=== PATIENT | male | born 1965 | race African-American/Black ===

== ENCOUNTER 2021-10-21 13:39 | Inpatient (IN) | payer OTHER ==
[2021-10-21] MEDS ORDERED: cloNIDine HCL 0.1 MG TABLET PO ONE (16:46)
[2021-10-21 16:59] VITALS: BMI 28.5
[2021-10-21] MEDS ORDERED: MAGNESIUM HYDROX 2400MG/30ML ORAL SUSPENSION 30 ML CUP PO PRN (17:31)
[2021-10-21] MEDS ORDERED: guaiFENesin 200 MG/10 ML 10 ML UNIT-DOSE CUPS PO PRN (17:31)
[2021-10-21] MEDS ORDERED: MAGNESIUM CITRATE 300 ML BOTTLE PO PRN (17:31)
[2021-10-21] MEDS ORDERED: IBUPROFEN 400 MG TABLET (FP) PO PRN (17:31)
[2021-10-21] MEDS ORDERED: ACETAMINOPHEN 325 MG TABLET (FP) PO PRN (17:31)
[2021-10-21] MEDS ORDERED: P-EPHED 60MG/TRIPROLIDI 2.5MG TABLET PO PRN (17:31)
[2021-10-21] MEDS ORDERED: LOPERAMIDE HCL 2 MG CAPSULE PO PRN ×2 (17:31→17:56)
[2021-10-21] MEDS ORDERED: BISMUTH SUBSALICYLATE 524 MG/30 ML PO PRN (17:56)
[2021-10-21] MEDS ORDERED: chlordiazePOXIDE HCL 25 MG CAPSULE PO PRN (17:56)
[2021-10-21] MEDS ORDERED: ONDANSETRON *ODT* 4 MG TABLET SL PRN (17:56)
[2021-10-21] MEDS ORDERED: DICYCLOMINE HCL 10 MG CAPSULE PO PRN (17:56)
[2021-10-21] MEDS ORDERED: BENZOCAINE/MENTHOL (CHLORASEPTIC ) LOZENGE MM PRN (17:56)
[2021-10-21] MEDS ORDERED: IBUPROFEN 600 MG TABLET (FP) PO PRN (17:56)
[2021-10-21] MEDS: hydrOXYzine PAMOATE 25 MG CAPSULE (FP) PO SCH ×2 (20:53→21:49)
[2021-10-21] MEDS: MELATONIN 5 MG TABLETS PO SCH (21:39)
[2021-10-21] MEDS: ASPIRIN 81 MG CHEWABLE TABLETS PO SCH (21:39)
[2021-10-21] MEDS: THIAMINE HCL 100 MG TABLET (FP) PO SCH (21:39)
[2021-10-21] MEDS: METHOCARBAMOL 500 MG TABLET PO PRN (21:40)
[2021-10-21] MEDS: GABAPENTIN 400 MG CAPSULE PO SCH (21:40)
[2021-10-21] MEDS ORDERED: GABAPENTIN 400 MG CAPSULE PO SCH (22:00)
[2021-10-21] MEDS: chlordiazePOXIDE HCL 25 MG CAPSULE PO SCH (22:05)
[2021-10-22] MEDS: hydrOXYzine PAMOATE 25 MG CAPSULE (FP) PO SCH ×5 (05:36→22:27)
[2021-10-22] MEDS: GABAPENTIN 400 MG CAPSULE PO SCH ×3 (05:36→22:27)
[2021-10-22] MEDS: chlordiazePOXIDE HCL 25 MG CAPSULE PO SCH ×4 (05:37→22:26)
[2021-10-22] MEDS: NICOTINE 7 MG/24 HOURS TOPICAL PATCH TD SCH (10:19)
[2021-10-22] MEDS: PRENATAL VITAMINS W/ FOLIC ACID TABLET (FP) PO SCH (10:20)
[2021-10-22] MEDS: METHOCARBAMOL 500 MG TABLET PO PRN (10:20)
[2021-10-22] MEDS: ASPIRIN 81 MG CHEWABLE TABLETS PO SCH (10:20)
[2021-10-22 13:56] LABS: BLOOD UREA NITROGEN 12.5 mg/dL (7-18); CALCIUM 9.5 mg/dL (8.5-10.1); HEMATOCRIT 39.3 % (35.4-49); HEMOGLOBIN 12.9 GM/dL (11.7-16.9); MCH 28.7 pg (25.7-33.7); MCHC 32.7 g/dl (32.0-35.9); MEAN CELL VOLUME 87.8 fl (80-96); MEAN PLT VOLUME 10.1 fl (7.5-11.1); PLATELET COUNT 336 10^3/uL (134-434); RBC 4.48 M/mm3 (4.00-5.60); RDW 16.2 % (11.9-15.9); WHITE BLOOD COUNT 8.4 K/mm3 (4.0-10.0)
[2021-10-22 14:00] LABS: BILIRUBIN,TOTAL 0.7 mg/dL (0.2-1)
[2021-10-22 14:01] LABS: TOT PROT 6.5 g/dl (6.4-8.2)
[2021-10-22 14:27] LABS: SYPHILIS W/ RPR CONF NON-REACTIVE (NONREACTIVE)
[2021-10-22] MEDS: MAG HYDROX/AL HYDROX/SIMETH 30 ML UNIT-DOSE CUP PO PRN (19:40)
[2021-10-22] MEDS: MELATONIN 5 MG TABLETS PO SCH (22:27)
[2021-10-22] MEDS: PANTOPRAZOLE 20 MG TABLET PO SCH (22:27)
[2021-10-22] MEDS: THIAMINE HCL 100 MG TABLET (FP) PO SCH (22:27)
[2021-10-23] MEDS: chlordiazePOXIDE HCL 25 MG CAPSULE PO SCH ×4 (06:13→23:12)
[2021-10-23] MEDS: hydrOXYzine PAMOATE 25 MG CAPSULE (FP) PO SCH ×5 (06:14→23:13)
[2021-10-23] MEDS: GABAPENTIN 400 MG CAPSULE PO SCH ×3 (06:14→23:12)
[2021-10-23] MEDS: MAG HYDROX/AL HYDROX/SIMETH 30 ML UNIT-DOSE CUP PO PRN (06:36)
[2021-10-23] MEDS: PANTOPRAZOLE 20 MG TABLET PO SCH ×3 (10:18→23:11)
[2021-10-23] MEDS: ASPIRIN 81 MG CHEWABLE TABLETS PO SCH (10:18)
[2021-10-23] MEDS: PRENATAL VITAMINS W/ FOLIC ACID TABLET (FP) PO SCH (10:18)
[2021-10-23] MEDS: NICOTINE 7 MG/24 HOURS TOPICAL PATCH TD SCH (12:03)
[2021-10-23] MEDS: METOPROLOL TARTRATE 25 MG TABLET (FP) PO SCH ×2 (13:44→23:12)
[2021-10-23] MEDS: NIFEdipine E.R 60 MG TABLET PO SCH ×2 (13:44→23:12)
[2021-10-23] MEDS: RIVAROXABAN 20 MG TABLET PO SCH (13:44)
[2021-10-23] MEDS: MELATONIN 5 MG TABLETS PO SCH (23:12)
[2021-10-23] MEDS: THIAMINE HCL 100 MG TABLET (FP) PO SCH (23:13)
[2021-10-24] MEDS ORDERED: chlordiazePOXIDE HCL 10 MG CAPSULE PO PRN
[2021-10-24] MEDS: hydrOXYzine PAMOATE 25 MG CAPSULE (FP) PO SCH ×5 (06:57→22:38)
[2021-10-24] MEDS: chlordiazePOXIDE HCL 10 MG CAPSULE PO SCH ×4 (06:57→22:39)
[2021-10-24] MEDS: GABAPENTIN 400 MG CAPSULE PO SCH ×3 (06:57→22:38)
[2021-10-24] MEDS: METOPROLOL TARTRATE 25 MG TABLET (FP) PO SCH ×2 (10:32→22:38)
[2021-10-24] MEDS: ASPIRIN 81 MG CHEWABLE TABLETS PO SCH (10:32)
[2021-10-24] MEDS: PANTOPRAZOLE 20 MG TABLET PO SCH ×2 (10:32→22:38)
[2021-10-24] MEDS: RIVAROXABAN 20 MG TABLET PO SCH (10:32)
[2021-10-24] MEDS: NIFEdipine E.R 60 MG TABLET PO SCH ×2 (10:33→23:20)
[2021-10-24] MEDS: PRENATAL VITAMINS W/ FOLIC ACID TABLET (FP) PO SCH (10:33)
[2021-10-24] MEDS: NICOTINE 7 MG/24 HOURS TOPICAL PATCH TD SCH (10:33)
[2021-10-24] MEDS: NICOTINE 10 MG CARTRIDGE (INHALER) IH PRN (19:59)
[2021-10-24] MEDS: THIAMINE HCL 100 MG TABLET (FP) PO SCH (22:38)
[2021-10-24] MEDS: MELATONIN 5 MG TABLETS PO SCH (22:39)
[2021-10-25] MEDS: GABAPENTIN 400 MG CAPSULE PO SCH ×3 (06:25→22:55)
[2021-10-25] MEDS: chlordiazePOXIDE HCL 10 MG CAPSULE PO SCH ×2 (06:25→18:28)
[2021-10-25] MEDS: hydrOXYzine PAMOATE 25 MG CAPSULE (FP) PO SCH ×5 (06:26→22:56)
[2021-10-25] MEDS: NIFEdipine E.R 60 MG TABLET PO SCH ×2 (10:48→22:56)
[2021-10-25] MEDS: METOPROLOL TARTRATE 25 MG TABLET (FP) PO SCH ×2 (10:48→22:55)
[2021-10-25] MEDS: RIVAROXABAN 20 MG TABLET PO SCH (10:48)
[2021-10-25] MEDS: ASPIRIN 81 MG CHEWABLE TABLETS PO SCH (10:49)
[2021-10-25] MEDS: PRENATAL VITAMINS W/ FOLIC ACID TABLET (FP) PO SCH (10:49)
[2021-10-25] MEDS: PANTOPRAZOLE 20 MG TABLET PO SCH ×2 (10:49→22:55)
[2021-10-25] MEDS: NICOTINE 7 MG/24 HOURS TOPICAL PATCH TD SCH (10:49)
[2021-10-25] MEDS: THIAMINE HCL 100 MG TABLET (FP) PO SCH (22:56)
[2021-10-25] MEDS: MELATONIN 5 MG TABLETS PO SCH (22:56)
[2021-10-26] MEDS ORDERED: chlordiazePOXIDE HCL 10 MG CAPSULE PO ONE (05:00)
[2021-10-26] MEDS: hydrOXYzine PAMOATE 25 MG CAPSULE (FP) PO SCH ×5 (06:36→21:48)
[2021-10-26] MEDS: GABAPENTIN 400 MG CAPSULE PO SCH ×3 (06:36→21:48)
[2021-10-26] MEDS: PANTOPRAZOLE 20 MG TABLET PO SCH ×2 (11:02→21:49)
[2021-10-26] MEDS: ASPIRIN 81 MG CHEWABLE TABLETS PO SCH (11:02)
[2021-10-26] MEDS: PRENATAL VITAMINS W/ FOLIC ACID TABLET (FP) PO SCH (11:02)
[2021-10-26] MEDS: NIFEdipine E.R 60 MG TABLET PO SCH ×2 (11:02→23:03)
[2021-10-26] MEDS: METHOCARBAMOL 500 MG TABLET PO PRN (11:10)
[2021-10-26] MEDS: NICOTINE 7 MG/24 HOURS TOPICAL PATCH TD SCH (11:17)
[2021-10-26] MEDS: METOPROLOL TARTRATE 25 MG TABLET (FP) PO SCH ×2 (11:17→21:50)
[2021-10-26] MEDS: RIVAROXABAN 20 MG TABLET PO SCH (11:18)
[2021-10-26] MEDS: VITAMINS A AND D TOPICAL OINTMENT 60 GM TUBE TP SCH (18:12)
[2021-10-26] MEDS: MELATONIN 5 MG TABLETS PO SCH (21:49)
[2021-10-26] MEDS: THIAMINE HCL 100 MG TABLET (FP) PO SCH (21:49)
[2021-10-27] MEDS: VITAMINS A AND D TOPICAL OINTMENT 60 GM TUBE TP SCH ×4 (02:33→18:53)
[2021-10-27] MEDS: hydrOXYzine PAMOATE 25 MG CAPSULE (FP) PO SCH ×5 (05:52→21:36)
[2021-10-27] MEDS: GABAPENTIN 400 MG CAPSULE PO SCH ×3 (05:52→21:36)
[2021-10-27] MEDS: NIFEdipine E.R 60 MG TABLET PO SCH ×2 (11:06→21:45)
[2021-10-27] MEDS: PRENATAL VITAMINS W/ FOLIC ACID TABLET (FP) PO SCH (11:07)
[2021-10-27] MEDS: METOPROLOL TARTRATE 25 MG TABLET (FP) PO SCH ×2 (11:07→21:36)
[2021-10-27] MEDS: ASPIRIN 81 MG CHEWABLE TABLETS PO SCH (11:07)
[2021-10-27] MEDS: NICOTINE 7 MG/24 HOURS TOPICAL PATCH TD SCH (11:07)
[2021-10-27] MEDS: PANTOPRAZOLE 20 MG TABLET PO SCH ×2 (11:12→21:36)
[2021-10-27] MEDS: RIVAROXABAN 20 MG TABLET PO SCH (11:18)
[2021-10-27] MEDS: MELATONIN 5 MG TABLETS PO SCH (21:36)
[2021-10-27] MEDS: THIAMINE HCL 100 MG TABLET (FP) PO SCH (21:36)
[2021-10-28] MEDS: hydrOXYzine PAMOATE 25 MG CAPSULE (FP) PO SCH ×5 (06:30→23:17)
[2021-10-28] MEDS: GABAPENTIN 400 MG CAPSULE PO SCH ×3 (06:30→23:16)
[2021-10-28] MEDS: VITAMINS A AND D TOPICAL OINTMENT 60 GM TUBE TP SCH ×4 (06:30→23:15)
[2021-10-28] MEDS: PRENATAL VITAMINS W/ FOLIC ACID TABLET (FP) PO SCH (10:34)
[2021-10-28] MEDS: NIFEdipine E.R 60 MG TABLET PO SCH ×2 (10:35→23:16)
[2021-10-28] MEDS: METOPROLOL TARTRATE 25 MG TABLET (FP) PO SCH ×2 (10:35→23:17)
[2021-10-28] MEDS: ASPIRIN 81 MG CHEWABLE TABLETS PO SCH (10:35)
[2021-10-28] MEDS: RIVAROXABAN 20 MG TABLET PO SCH (10:35)
[2021-10-28] MEDS: PANTOPRAZOLE 20 MG TABLET PO SCH ×2 (10:35→23:16)
[2021-10-28] MEDS: NICOTINE 7 MG/24 HOURS TOPICAL PATCH TD SCH (10:36)
[2021-10-28] MEDS: MELATONIN 5 MG TABLETS PO SCH (23:16)
[2021-10-28] MEDS: THIAMINE HCL 100 MG TABLET (FP) PO SCH (23:17)
[2021-10-29] MEDS: hydrOXYzine PAMOATE 25 MG CAPSULE (FP) PO SCH ×5 (06:27→22:00)
[2021-10-29] MEDS: GABAPENTIN 400 MG CAPSULE PO SCH ×3 (06:27→21:48)
[2021-10-29] MEDS: VITAMINS A AND D TOPICAL OINTMENT 60 GM TUBE TP SCH ×4 (06:28→22:00)
[2021-10-29] MEDS: RIVAROXABAN 20 MG TABLET PO SCH (09:57)
[2021-10-29] MEDS: NIFEdipine E.R 60 MG TABLET PO SCH ×2 (09:57→21:48)
[2021-10-29] MEDS: PRENATAL VITAMINS W/ FOLIC ACID TABLET (FP) PO SCH (09:57)
[2021-10-29] MEDS: METOPROLOL TARTRATE 25 MG TABLET (FP) PO SCH ×2 (09:57→21:48)
[2021-10-29] MEDS: PANTOPRAZOLE 20 MG TABLET PO SCH ×2 (09:57→21:48)
[2021-10-29] MEDS: ASPIRIN 81 MG CHEWABLE TABLETS PO SCH (09:57)
[2021-10-29] MEDS: NICOTINE 7 MG/24 HOURS TOPICAL PATCH TD SCH (09:58)
[2021-10-29] MEDS: MELATONIN 5 MG TABLETS PO SCH (21:48)
[2021-10-29] MEDS: THIAMINE HCL 100 MG TABLET (FP) PO SCH (21:48)
[2021-10-29] MEDS: NICOTINE 10 MG CARTRIDGE (INHALER) IH PRN (22:58)
[2021-10-30] MEDS: hydrOXYzine PAMOATE 25 MG CAPSULE (FP) PO SCH ×5 (05:36→22:52)
[2021-10-30] MEDS: GABAPENTIN 400 MG CAPSULE PO SCH ×3 (05:36→22:52)
[2021-10-30] MEDS: VITAMINS A AND D TOPICAL OINTMENT 60 GM TUBE TP SCH ×3 (05:37→18:51)
[2021-10-30] MEDS: RIVAROXABAN 20 MG TABLET PO SCH (09:48)
[2021-10-30] MEDS: NICOTINE 7 MG/24 HOURS TOPICAL PATCH TD SCH (09:48)
[2021-10-30] MEDS: ASPIRIN 81 MG CHEWABLE TABLETS PO SCH (09:48)
[2021-10-30] MEDS: NIFEdipine E.R 60 MG TABLET PO SCH ×2 (09:48→22:52)
[2021-10-30] MEDS: PRENATAL VITAMINS W/ FOLIC ACID TABLET (FP) PO SCH (09:48)
[2021-10-30] MEDS: PANTOPRAZOLE 20 MG TABLET PO SCH ×2 (09:48→22:52)
[2021-10-30] MEDS: METOPROLOL TARTRATE 25 MG TABLET (FP) PO SCH ×2 (09:48→22:51)
[2021-10-30] MEDS ORDERED: HYDROCORTISONE 0.5% TOPICAL CREAM 30 GM TUBE TP ONE (17:04)
[2021-10-30] MEDS: NEOMYCIN/POLYMYXIN/BACITRACIN (TRIPLE ANTIBIOTIC) 28 GM OINTMENT TP SCH (22:51)
[2021-10-30] MEDS: THIAMINE HCL 100 MG TABLET (FP) PO SCH (22:51)
[2021-10-30] MEDS: MELATONIN 5 MG TABLETS PO SCH (22:52)
[2021-10-31] MEDS: VITAMINS A AND D TOPICAL OINTMENT 60 GM TUBE TP SCH ×4 (01:10→18:07)
[2021-10-31] MEDS: GABAPENTIN 400 MG CAPSULE PO SCH ×3 (06:38→22:26)
[2021-10-31] MEDS: hydrOXYzine PAMOATE 25 MG CAPSULE (FP) PO SCH ×5 (06:38→22:24)
[2021-10-31 06:56] VITALS: RESP 18
[2021-10-31] MEDS: ASPIRIN 81 MG CHEWABLE TABLETS PO SCH (10:40)
[2021-10-31] MEDS: PANTOPRAZOLE 20 MG TABLET PO SCH ×2 (10:40→22:24)
[2021-10-31] MEDS: NICOTINE 7 MG/24 HOURS TOPICAL PATCH TD SCH (10:41)
[2021-10-31] MEDS: METOPROLOL TARTRATE 25 MG TABLET (FP) PO SCH ×2 (10:41→22:26)
[2021-10-31] MEDS: PRENATAL VITAMINS W/ FOLIC ACID TABLET (FP) PO SCH (10:41)
[2021-10-31] MEDS: NIFEdipine E.R 60 MG TABLET PO SCH ×2 (10:42→22:25)
[2021-10-31] MEDS: RIVAROXABAN 20 MG TABLET PO SCH (10:44)
[2021-10-31] MEDS: NEOMYCIN/POLYMYXIN/BACITRACIN (TRIPLE ANTIBIOTIC) 28 GM OINTMENT TP SCH (10:44)
[2021-10-31 11:02] LABS: EPI CELLS 1 /uL (0-25.1); HYALINE CASTS 0 /uL (0-3.1); PH,URINE 7.5 (5.0-8.0); URINE APPEARANCE CLEAR; URINE BACTERIA 6 /uL (0-1359); URINE BILIRUBIN NEGATIVE (NEGATIVE); URINE COLOR YELLOW; URINE GLUCOSE (UA) NEGATIVE (NEGATIVE); URINE KETONE NEGATIVE (NEGATIVE); URINE LEUK ESTERASE NEGATIVE (NEGATIVE); URINE NITRITE NEGATIVE (NEGATIVE); URINE PROTEIN 1+ (NEGATIVE); URINE RBC 18 /uL (0-23.9); URINE UROBILINOGEN 0.2 mg/dL (0.2-1.0); URINE WBC 1 /uL (0-25.8)
[2021-10-31] MEDS: MELATONIN 5 MG TABLETS PO SCH (22:24)
[2021-10-31] MEDS: THIAMINE HCL 100 MG TABLET (FP) PO SCH (22:24)
[2021-11-01] MEDS: GABAPENTIN 400 MG CAPSULE PO SCH (06:27)
[2021-11-01] MEDS: hydrOXYzine PAMOATE 25 MG CAPSULE (FP) PO SCH ×2 (06:28→10:12)
[2021-11-01] MEDS: VITAMINS A AND D TOPICAL OINTMENT 60 GM TUBE TP SCH ×2 (07:44→07:45)
[2021-11-01 09:35] VITALS: BP 157/74; PULSE 64; TEMP 97.8
[2021-11-01] MEDS: NICOTINE 7 MG/24 HOURS TOPICAL PATCH TD SCH (10:12)
[2021-11-01] MEDS: PRENATAL VITAMINS W/ FOLIC ACID TABLET (FP) PO SCH (10:12)
[2021-11-01] MEDS: NEOMYCIN/POLYMYXIN/BACITRACIN (TRIPLE ANTIBIOTIC) 28 GM OINTMENT TP SCH (10:12)
[2021-11-01] MEDS: ASPIRIN 81 MG CHEWABLE TABLETS PO SCH (10:12)
[2021-11-01] MEDS: PANTOPRAZOLE 20 MG TABLET PO SCH (10:12)
[2021-11-01] MEDS: METOPROLOL TARTRATE 25 MG TABLET (FP) PO SCH (10:13)
[2021-11-01] MEDS: NIFEdipine E.R 60 MG TABLET PO SCH (10:13)
[2021-11-01] MEDS: RIVAROXABAN 20 MG TABLET PO SCH (10:14)
== END 2021-11-01 10:59 | disposition other institution (70) | DRG 775 ==
LOC: YASAS 13:39 → Y3N 18:46
PROVIDERS: ADMIT Allergy & Immunology; ATTEND Surgery
PROC: HZ2ZZZZ Detoxification Services for Substance Abuse Treatment (ICD-10-PCS; principal; 2021-10-21)
DX: F10.230 Alcohol dependence with withdrawal, uncomplicated (principal); F17.210 Nicotine dependence, cigarettes, uncomplicated; E78.5 Hyperlipidemia, unspecified; I10 Essential (primary) hypertension; I73.9 Peripheral vascular disease, unspecified; Z89.512 Acquired absence of left leg below knee; Z89.611 Acquired absence of right leg above knee; Z99.89 Dependence on other enabling machines and devices; Z86.73 Personal history of transient ischemic attack (TIA), and cerebral infarction without residual deficits; Z28.310 Unvaccinated for COVID-19; Z28.9 Immunization not carried out for unspecified reason; Z91.018 Allergy to other foods
CPT/HCPCS: 36415; 80053; 81003; 85027; 86780; 86803; 87522; C9803-CS; U0003; U0005

== ENCOUNTER 2021-11-01 10:50 | Inpatient (IN) | payer OTHER ==
[2021-11-01] MEDS ORDERED: MAGNESIUM CITRATE 300 ML BOTTLE PO PRN (15:26)
[2021-11-01] MEDS ORDERED: IBUPROFEN 400 MG TABLET (FP) PO PRN (15:26)
[2021-11-01] MEDS ORDERED: P-EPHED 60MG/TRIPROLIDI 2.5MG TABLET PO PRN (15:26)
[2021-11-01] MEDS ORDERED: LOPERAMIDE HCL 2 MG CAPSULE PO PRN (15:26)
[2021-11-01] MEDS ORDERED: MAG HYDROX/AL HYDROX/SIMETH 30 ML UNIT-DOSE CUP PO PRN (15:26)
[2021-11-01] MEDS ORDERED: MAGNESIUM HYDROX 2400MG/30ML ORAL SUSPENSION 30 ML CUP PO PRN (15:26)
[2021-11-01] MEDS ORDERED: NICOTINE 10 MG CARTRIDGE (INHALER) IH PRN (15:26)
[2021-11-01] MEDS ORDERED: BENZOCAINE/MENTHOL (CHLORASEPTIC ) LOZENGE MM PRN (15:26)
[2021-11-01] MEDS ORDERED: ACETAMINOPHEN 325 MG TABLET (FP) PO PRN (15:26)
[2021-11-01] MEDS ORDERED: guaiFENesin 200 MG/10 ML 10 ML UNIT-DOSE CUPS PO PRN (15:26)
[2021-11-01] MEDS: NICOTINE 7 MG/24 HOURS TOPICAL PATCH TD SCH (19:08)
[2021-11-01] MEDS: hydrOXYzine PAMOATE 25 MG CAPSULE (FP) PO SCH ×2 (19:09→21:16)
[2021-11-01] MEDS: PRENATAL VITAMINS W/ FOLIC ACID TABLET (FP) PO SCH (19:10)
[2021-11-01] MEDS: THIAMINE HCL 100 MG TABLET (FP) PO SCH (21:15)
[2021-11-01] MEDS: ROSUVASTATIN CA 10 MG TABLET PO SCH (21:16)
[2021-11-01] MEDS: GABAPENTIN 400 MG CAPSULE PO SCH (21:16)
[2021-11-01] MEDS: PANTOPRAZOLE 20 MG TABLET PO SCH (21:16)
[2021-11-01] MEDS: METOPROLOL TARTRATE 25 MG TABLET (FP) PO SCH (21:16)
[2021-11-01] MEDS: NIFEdipine E.R 60 MG TABLET PO SCH (21:18)
[2021-11-01] MEDS ORDERED: MELATONIN 5 MG TABLETS PO SCH (22:00)
[2021-11-02] MEDS: GABAPENTIN 400 MG CAPSULE PO SCH ×3 (07:55→21:20)
[2021-11-02] MEDS: hydrOXYzine PAMOATE 25 MG CAPSULE (FP) PO SCH ×5 (07:56→21:19)
[2021-11-02] MEDS: PRENATAL VITAMINS W/ FOLIC ACID TABLET (FP) PO SCH (10:02)
[2021-11-02] MEDS: METOPROLOL TARTRATE 25 MG TABLET (FP) PO SCH ×2 (10:02→21:21)
[2021-11-02] MEDS: NIFEdipine E.R 60 MG TABLET PO SCH ×2 (10:02→21:23)
[2021-11-02] MEDS: CLOPIDOGREL BISULFATE 75 MG TABLET (FP) PO SCH (10:02)
[2021-11-02] MEDS: NICOTINE 7 MG/24 HOURS TOPICAL PATCH TD SCH (10:02)
[2021-11-02] MEDS: PANTOPRAZOLE 20 MG TABLET PO SCH ×2 (10:02→21:20)
[2021-11-02] MEDS ORDERED: DULoxetine HCL 60 MG CAPSULE.DR PO SCH (15:30)
[2021-11-02] MEDS: DULoxetine HCL 30 MG CAPSULE.DR PO SCH (15:31)
[2021-11-02] MEDS: THIAMINE HCL 100 MG TABLET (FP) PO SCH (21:19)
[2021-11-02] MEDS: ROSUVASTATIN CA 10 MG TABLET PO SCH (21:23)
[2021-11-02] MEDS ORDERED: SUVOREXANT 10 MG TABLET PO PRN (22:00)
[2021-11-03] MEDS: GABAPENTIN 400 MG CAPSULE PO SCH ×3 (07:26→21:40)
[2021-11-03] MEDS: hydrOXYzine PAMOATE 25 MG CAPSULE (FP) PO SCH ×5 (07:26→21:40)
[2021-11-03] MEDS: CLOPIDOGREL BISULFATE 75 MG TABLET (FP) PO SCH (09:42)
[2021-11-03] MEDS: DULoxetine HCL 30 MG CAPSULE.DR PO SCH (09:43)
[2021-11-03] MEDS: PANTOPRAZOLE 20 MG TABLET PO SCH ×2 (09:43→21:40)
[2021-11-03] MEDS: METOPROLOL TARTRATE 25 MG TABLET (FP) PO SCH ×2 (09:43→21:40)
[2021-11-03] MEDS: NIFEdipine E.R 60 MG TABLET PO SCH ×2 (09:44→21:41)
[2021-11-03] MEDS: PRENATAL VITAMINS W/ FOLIC ACID TABLET (FP) PO SCH (09:44)
[2021-11-03] MEDS: NICOTINE 7 MG/24 HOURS TOPICAL PATCH TD SCH (09:44)
[2021-11-03] MEDS: THIAMINE HCL 100 MG TABLET (FP) PO SCH (21:39)
[2021-11-03] MEDS: ROSUVASTATIN CA 10 MG TABLET PO SCH (21:41)
[2021-11-04] MEDS: GABAPENTIN 400 MG CAPSULE PO SCH ×3 (06:48→22:50)
[2021-11-04] MEDS: hydrOXYzine PAMOATE 25 MG CAPSULE (FP) PO SCH ×5 (06:48→22:50)
[2021-11-04] MEDS: METOPROLOL TARTRATE 25 MG TABLET (FP) PO SCH ×2 (09:46→22:50)
[2021-11-04] MEDS: DULoxetine HCL 30 MG CAPSULE.DR PO SCH (09:47)
[2021-11-04] MEDS: PANTOPRAZOLE 20 MG TABLET PO SCH ×2 (09:47→22:50)
[2021-11-04] MEDS: PRENATAL VITAMINS W/ FOLIC ACID TABLET (FP) PO SCH (09:47)
[2021-11-04] MEDS: NIFEdipine E.R 60 MG TABLET PO SCH ×2 (09:48→22:50)
[2021-11-04] MEDS: NICOTINE 7 MG/24 HOURS TOPICAL PATCH TD SCH (09:49)
[2021-11-04] MEDS: CLOPIDOGREL BISULFATE 75 MG TABLET (FP) PO SCH (11:05)
[2021-11-04] MEDS ORDERED: RIVAROXABAN 20 MG TABLET PO SCH (18:00)
[2021-11-04] MEDS ORDERED: SUVOREXANT 10 MG TABLET PO PRN (22:00)
[2021-11-04] MEDS: THIAMINE HCL 100 MG TABLET (FP) PO SCH (22:50)
[2021-11-04] MEDS: ROSUVASTATIN CA 10 MG TABLET PO SCH (22:50)
[2021-11-04 23:46] VITALS: RESP 18
[2021-11-05 00:48] VITALS: BP 161/74; PULSE 71; TEMP 98.2
== END 2021-11-05 00:15 | disposition short-term general hospital (02) | DRG 775 ==
LOC: YASAS 10:50 → Y3E 10:52
PROVIDERS: ADMIT Allergy & Immunology; ATTEND Psychiatry & Neurology Pain Medicine
DX: F10.20 Alcohol dependence, uncomplicated (principal); F12.20 Cannabis dependence, uncomplicated; F10.24 Alcohol dependence with alcohol-induced mood disorder; F10.282 Alcohol dependence with alcohol-induced sleep disorder; F10.280 Alcohol dependence with alcohol-induced anxiety disorder; F17.210 Nicotine dependence, cigarettes, uncomplicated; I73.9 Peripheral vascular disease, unspecified; I10 Essential (primary) hypertension; E78.5 Hyperlipidemia, unspecified; K21.9 Gastro-esophageal reflux disease without esophagitis; S59.902A Unspecified injury of left elbow, initial encounter; S19.9XXA Unspecified injury of neck, initial encounter; W18.2XXA Fall in (into) shower or empty bathtub, initial encounter; Y93.E1 Activity, personal bathing and showering; Y92.231 Patient bathroom in hospital as the place of occurrence of the external cause; Z62.810 Personal history of physical and sexual abuse in childhood; Z89.611 Acquired absence of right leg above knee; Z89.512 Acquired absence of left leg below knee; Z99.89 Dependence on other enabling machines and devices; Z91.410 Personal history of adult physical and sexual abuse; Z86.711 Personal history of pulmonary embolism; Z79.01 Long term (current) use of anticoagulants; Z95.828 Presence of other vascular implants and grafts; Z86.73 Personal history of transient ischemic attack (TIA), and cerebral infarction without residual deficits; Z87.11 Personal history of peptic ulcer disease
CPT/HCPCS: 82962

== ENCOUNTER 2021-11-06 16:42 | Inpatient (IN) | payer OTHER ==
[2021-11-06] MEDS ORDERED: MAGNESIUM CITRATE 300 ML BOTTLE PO PRN (17:16)
[2021-11-06] MEDS ORDERED: ACETAMINOPHEN 325 MG TABLET (FP) PO PRN (17:16)
[2021-11-06] MEDS ORDERED: P-EPHED 60MG/TRIPROLIDI 2.5MG TABLET PO PRN (17:16)
[2021-11-06] MEDS ORDERED: MAGNESIUM HYDROX 2400MG/30ML ORAL SUSPENSION 30 ML CUP PO PRN (17:16)
[2021-11-06] MEDS ORDERED: LOPERAMIDE HCL 2 MG CAPSULE PO PRN (17:16)
[2021-11-06] MEDS ORDERED: MAG HYDROX/AL HYDROX/SIMETH 30 ML UNIT-DOSE CUP PO PRN (17:16)
[2021-11-06] MEDS ORDERED: BENZOCAINE/MENTHOL (CHLORASEPTIC ) LOZENGE MM PRN (17:16)
[2021-11-06] MEDS ORDERED: guaiFENesin 200 MG/10 ML 10 ML UNIT-DOSE CUPS PO PRN (17:16)
[2021-11-06 17:17] VITALS: BMI 33.2
[2021-11-06] MEDS: RIVAROXABAN 20 MG TABLET PO SCH (19:30)
[2021-11-06] MEDS: THIAMINE HCL 100 MG TABLET (FP) PO SCH (21:06)
[2021-11-06] MEDS: NIFEdipine E.R 60 MG TABLET PO SCH (21:06)
[2021-11-06] MEDS: MELATONIN 5 MG TABLETS PO PRN (21:06)
[2021-11-06] MEDS: ROSUVASTATIN CA 10 MG TABLET PO SCH (21:06)
[2021-11-06] MEDS: METOPROLOL TARTRATE 25 MG TABLET (FP) PO SCH (21:08)
[2021-11-06] MEDS: GABAPENTIN 400 MG CAPSULE PO SCH (21:08)
[2021-11-07] MEDS: GABAPENTIN 400 MG CAPSULE PO SCH ×3 (06:36→21:11)
[2021-11-07] MEDS: DULoxetine HCL 30 MG CAPSULE.DR PO SCH (09:42)
[2021-11-07] MEDS: PRENATAL VITAMINS W/ FOLIC ACID TABLET (FP) PO SCH (09:43)
[2021-11-07] MEDS: METOPROLOL TARTRATE 25 MG TABLET (FP) PO SCH ×2 (09:43→21:11)
[2021-11-07] MEDS: CLOPIDOGREL BISULFATE 75 MG TABLET (FP) PO SCH (09:43)
[2021-11-07] MEDS: NIFEdipine E.R 60 MG TABLET PO SCH ×2 (09:43→21:12)
[2021-11-07] MEDS: FAMOTIDINE 20 MG TABLET PO SCH (09:43)
[2021-11-07] MEDS: LIDOCAINE 5% TOPICAL PATCH TP PRN (12:55)
[2021-11-07] MEDS: RIVAROXABAN 20 MG TABLET PO SCH (17:14)
[2021-11-07] MEDS: THIAMINE HCL 100 MG TABLET (FP) PO SCH (21:11)
[2021-11-07] MEDS: ROSUVASTATIN CA 10 MG TABLET PO SCH (21:11)
[2021-11-07] MEDS: LIDOCAINE PATCH REMOVAL MC SCH (21:11)
[2021-11-07] MEDS: MELATONIN 5 MG TABLETS PO PRN (21:12)
[2021-11-08] MEDS: GABAPENTIN 400 MG CAPSULE PO SCH ×3 (07:07→21:34)
[2021-11-08] MEDS: CLOPIDOGREL BISULFATE 75 MG TABLET (FP) PO SCH (10:25)
[2021-11-08] MEDS: DULoxetine HCL 30 MG CAPSULE.DR PO SCH (10:26)
[2021-11-08] MEDS: FAMOTIDINE 20 MG TABLET PO SCH (10:26)
[2021-11-08] MEDS: NIFEdipine E.R 60 MG TABLET PO SCH ×2 (10:26→21:36)
[2021-11-08] MEDS: PRENATAL VITAMINS W/ FOLIC ACID TABLET (FP) PO SCH (10:26)
[2021-11-08] MEDS: METOPROLOL TARTRATE 25 MG TABLET (FP) PO SCH ×2 (12:30→21:34)
[2021-11-08] MEDS: RIVAROXABAN 20 MG TABLET PO SCH (18:05)
[2021-11-08] MEDS: ROSUVASTATIN CA 10 MG TABLET PO SCH (21:34)
[2021-11-08] MEDS: THIAMINE HCL 100 MG TABLET (FP) PO SCH (21:34)
[2021-11-08] MEDS: LIDOCAINE PATCH REMOVAL MC SCH (21:34)
[2021-11-08] MEDS: MELATONIN 5 MG TABLETS PO PRN (21:36)
[2021-11-09] MEDS: GABAPENTIN 400 MG CAPSULE PO SCH ×3 (08:00→21:20)
[2021-11-09] MEDS: METOPROLOL TARTRATE 25 MG TABLET (FP) PO SCH ×2 (10:20→21:20)
[2021-11-09] MEDS: DULoxetine HCL 30 MG CAPSULE.DR PO SCH (10:20)
[2021-11-09] MEDS: CLOPIDOGREL BISULFATE 75 MG TABLET (FP) PO SCH (10:20)
[2021-11-09] MEDS: FAMOTIDINE 20 MG TABLET PO SCH (10:20)
[2021-11-09] MEDS: PRENATAL VITAMINS W/ FOLIC ACID TABLET (FP) PO SCH (10:21)
[2021-11-09] MEDS: NIFEdipine E.R 60 MG TABLET PO SCH ×2 (10:21→21:20)
[2021-11-09] MEDS: RIVAROXABAN 20 MG TABLET PO SCH (18:01)
[2021-11-09] MEDS: ROSUVASTATIN CA 10 MG TABLET PO SCH (21:20)
[2021-11-09] MEDS: hydrOXYzine PAMOATE 25 MG CAPSULE (FP) PO PRN (21:20)
[2021-11-09] MEDS: THIAMINE HCL 100 MG TABLET (FP) PO SCH (21:20)
[2021-11-09] MEDS: LIDOCAINE PATCH REMOVAL MC SCH (21:20)
[2021-11-09] MEDS: MELATONIN 5 MG TABLETS PO PRN (21:21)
[2021-11-10] MEDS: GABAPENTIN 400 MG CAPSULE PO SCH ×3 (06:40→21:06)
[2021-11-10] MEDS: PRENATAL VITAMINS W/ FOLIC ACID TABLET (FP) PO SCH (10:02)
[2021-11-10] MEDS: DULoxetine HCL 30 MG CAPSULE.DR PO SCH (10:02)
[2021-11-10] MEDS: CLOPIDOGREL BISULFATE 75 MG TABLET (FP) PO SCH (10:02)
[2021-11-10] MEDS: FAMOTIDINE 20 MG TABLET PO SCH (10:02)
[2021-11-10] MEDS: NIFEdipine E.R 60 MG TABLET PO SCH ×2 (10:03→21:07)
[2021-11-10] MEDS: METOPROLOL TARTRATE 25 MG TABLET (FP) PO SCH ×2 (11:00→21:06)
[2021-11-10] MEDS: RIVAROXABAN 20 MG TABLET PO SCH (17:32)
[2021-11-10] MEDS: THIAMINE HCL 100 MG TABLET (FP) PO SCH (21:05)
[2021-11-10] MEDS: MELATONIN 5 MG TABLETS PO PRN (21:05)
[2021-11-10] MEDS: LIDOCAINE PATCH REMOVAL MC SCH (21:06)
[2021-11-10] MEDS: ROSUVASTATIN CA 10 MG TABLET PO SCH (21:06)
[2021-11-11] MEDS: GABAPENTIN 400 MG CAPSULE PO SCH ×3 (06:24→21:10)
[2021-11-11] MEDS: CLOPIDOGREL BISULFATE 75 MG TABLET (FP) PO SCH (10:08)
[2021-11-11] MEDS: PRENATAL VITAMINS W/ FOLIC ACID TABLET (FP) PO SCH (10:08)
[2021-11-11] MEDS: METOPROLOL TARTRATE 25 MG TABLET (FP) PO SCH ×2 (10:08→21:10)
[2021-11-11] MEDS: DULoxetine HCL 30 MG CAPSULE.DR PO SCH (10:08)
[2021-11-11] MEDS: FAMOTIDINE 20 MG TABLET PO SCH (10:08)
[2021-11-11] MEDS: NIFEdipine E.R 60 MG TABLET PO SCH ×2 (10:08→21:11)
[2021-11-11] MEDS: RIVAROXABAN 20 MG TABLET PO SCH (18:00)
[2021-11-11] MEDS: MELATONIN 5 MG TABLETS PO PRN (21:10)
[2021-11-11] MEDS: THIAMINE HCL 100 MG TABLET (FP) PO SCH (21:10)
[2021-11-11] MEDS: LIDOCAINE PATCH REMOVAL MC SCH (21:11)
[2021-11-11] MEDS: ROSUVASTATIN CA 10 MG TABLET PO SCH (21:11)
[2021-11-12] MEDS: GABAPENTIN 400 MG CAPSULE PO SCH ×3 (06:35→21:08)
[2021-11-12] MEDS: PRENATAL VITAMINS W/ FOLIC ACID TABLET (FP) PO SCH (10:19)
[2021-11-12] MEDS: METOPROLOL TARTRATE 25 MG TABLET (FP) PO SCH ×2 (10:20→21:08)
[2021-11-12] MEDS: CLOPIDOGREL BISULFATE 75 MG TABLET (FP) PO SCH (10:20)
[2021-11-12] MEDS: NIFEdipine E.R 60 MG TABLET PO SCH ×2 (10:20→21:09)
[2021-11-12] MEDS: FAMOTIDINE 20 MG TABLET PO SCH (10:20)
[2021-11-12] MEDS: DULoxetine HCL 30 MG CAPSULE.DR PO SCH (10:20)
[2021-11-12] MEDS: RIVAROXABAN 20 MG TABLET PO SCH (17:59)
[2021-11-12] MEDS: ROSUVASTATIN CA 10 MG TABLET PO SCH (21:08)
[2021-11-12] MEDS: THIAMINE HCL 100 MG TABLET (FP) PO SCH (21:09)
[2021-11-12] MEDS: LIDOCAINE PATCH REMOVAL MC SCH (21:11)
[2021-11-12] MEDS: MELATONIN 5 MG TABLETS PO PRN (21:11)
[2021-11-13] MEDS: GABAPENTIN 400 MG CAPSULE PO SCH ×3 (06:45→21:22)
[2021-11-13] MEDS: DULoxetine HCL 30 MG CAPSULE.DR PO SCH (09:44)
[2021-11-13] MEDS: PRENATAL VITAMINS W/ FOLIC ACID TABLET (FP) PO SCH (09:45)
[2021-11-13] MEDS: FAMOTIDINE 20 MG TABLET PO SCH (09:45)
[2021-11-13] MEDS: METOPROLOL TARTRATE 25 MG TABLET (FP) PO SCH ×2 (09:45→21:22)
[2021-11-13] MEDS: CLOPIDOGREL BISULFATE 75 MG TABLET (FP) PO SCH (09:45)
[2021-11-13] MEDS: NIFEdipine E.R 60 MG TABLET PO SCH ×2 (09:46→21:22)
[2021-11-13] MEDS: hydrOXYzine PAMOATE 25 MG CAPSULE (FP) PO PRN ×2 (09:46→21:22)
[2021-11-13] MEDS: RIVAROXABAN 20 MG TABLET PO SCH (18:17)
[2021-11-13] MEDS: THIAMINE HCL 100 MG TABLET (FP) PO SCH (21:22)
[2021-11-13] MEDS: MELATONIN 5 MG TABLETS PO PRN (21:22)
[2021-11-13] MEDS: ROSUVASTATIN CA 10 MG TABLET PO SCH (21:22)
[2021-11-13] MEDS: LIDOCAINE PATCH REMOVAL MC SCH (21:23)
[2021-11-14] MEDS: GABAPENTIN 400 MG CAPSULE PO SCH ×3 (06:32→21:42)
[2021-11-14] MEDS: CLOPIDOGREL BISULFATE 75 MG TABLET (FP) PO SCH (10:12)
[2021-11-14] MEDS: NIFEdipine E.R 60 MG TABLET PO SCH ×2 (10:12→21:42)
[2021-11-14] MEDS: METOPROLOL TARTRATE 25 MG TABLET (FP) PO SCH ×2 (10:12→21:42)
[2021-11-14] MEDS: FAMOTIDINE 20 MG TABLET PO SCH (10:12)
[2021-11-14] MEDS: DULoxetine HCL 30 MG CAPSULE.DR PO SCH (10:13)
[2021-11-14] MEDS: PRENATAL VITAMINS W/ FOLIC ACID TABLET (FP) PO SCH (10:13)
[2021-11-14] MEDS: LIDOCAINE 5% TOPICAL PATCH TP PRN (10:14)
[2021-11-14] MEDS: RIVAROXABAN 20 MG TABLET PO SCH (18:08)
[2021-11-14] MEDS: ROSUVASTATIN CA 10 MG TABLET PO SCH (21:42)
[2021-11-14] MEDS: hydrOXYzine PAMOATE 25 MG CAPSULE (FP) PO PRN (21:42)
[2021-11-14] MEDS: THIAMINE HCL 100 MG TABLET (FP) PO SCH (21:42)
[2021-11-14] MEDS: LIDOCAINE PATCH REMOVAL MC SCH (21:43)
[2021-11-14] MEDS: MELATONIN 5 MG TABLETS PO PRN (21:44)
[2021-11-15] MEDS: GABAPENTIN 400 MG CAPSULE PO SCH ×3 (06:32→21:44)
[2021-11-15] MEDS: DULoxetine HCL 30 MG CAPSULE.DR PO SCH (09:46)
[2021-11-15] MEDS: CLOPIDOGREL BISULFATE 75 MG TABLET (FP) PO SCH (09:46)
[2021-11-15] MEDS: FAMOTIDINE 20 MG TABLET PO SCH (09:46)
[2021-11-15] MEDS: PRENATAL VITAMINS W/ FOLIC ACID TABLET (FP) PO SCH (09:47)
[2021-11-15] MEDS: NIFEdipine E.R 60 MG TABLET PO SCH ×2 (09:47→21:44)
[2021-11-15] MEDS: METOPROLOL TARTRATE 25 MG TABLET (FP) PO SCH ×2 (10:25→21:44)
[2021-11-15] MEDS: NICOTINE 10 MG CARTRIDGE (INHALER) IH SCH (14:30)
[2021-11-15] MEDS: RIVAROXABAN 20 MG TABLET PO SCH (17:19)
[2021-11-15] MEDS: ROSUVASTATIN CA 10 MG TABLET PO SCH (21:44)
[2021-11-15] MEDS: THIAMINE HCL 100 MG TABLET (FP) PO SCH (21:44)
[2021-11-15] MEDS: LIDOCAINE PATCH REMOVAL MC SCH (21:45)
[2021-11-16] MEDS: GABAPENTIN 400 MG CAPSULE PO SCH ×3 (06:27→21:24)
[2021-11-16] MEDS: DULoxetine HCL 30 MG CAPSULE.DR PO SCH (09:37)
[2021-11-16] MEDS: FAMOTIDINE 20 MG TABLET PO SCH (09:38)
[2021-11-16] MEDS: NIFEdipine E.R 60 MG TABLET PO SCH ×2 (09:38→21:23)
[2021-11-16] MEDS: CLOPIDOGREL BISULFATE 75 MG TABLET (FP) PO SCH (09:38)
[2021-11-16] MEDS: METOPROLOL TARTRATE 25 MG TABLET (FP) PO SCH ×3 (09:38→23:50)
[2021-11-16] MEDS: NICOTINE 10 MG CARTRIDGE (INHALER) IH SCH (09:39)
[2021-11-16] MEDS: PRENATAL VITAMINS W/ FOLIC ACID TABLET (FP) PO SCH (09:39)
[2021-11-16] MEDS: RIVAROXABAN 20 MG TABLET PO SCH (18:30)
[2021-11-16] MEDS: ROSUVASTATIN CA 10 MG TABLET PO SCH (21:24)
[2021-11-16] MEDS: THIAMINE HCL 100 MG TABLET (FP) PO SCH (21:25)
[2021-11-16] MEDS: MELATONIN 5 MG TABLETS PO PRN (21:25)
[2021-11-16] MEDS: LIDOCAINE PATCH REMOVAL MC SCH (21:26)
[2021-11-17] MEDS: GABAPENTIN 400 MG CAPSULE PO SCH ×3 (06:26→21:14)
[2021-11-17] MEDS: METOPROLOL TARTRATE 25 MG TABLET (FP) PO SCH ×2 (10:11→21:14)
[2021-11-17] MEDS: FAMOTIDINE 20 MG TABLET PO SCH (10:11)
[2021-11-17] MEDS: hydrOXYzine PAMOATE 25 MG CAPSULE (FP) PO PRN ×2 (10:11→21:13)
[2021-11-17] MEDS: DULoxetine HCL 30 MG CAPSULE.DR PO SCH (10:11)
[2021-11-17] MEDS: NIFEdipine E.R 60 MG TABLET PO SCH ×2 (10:11→21:14)
[2021-11-17] MEDS: CLOPIDOGREL BISULFATE 75 MG TABLET (FP) PO SCH (10:12)
[2021-11-17] MEDS: PRENATAL VITAMINS W/ FOLIC ACID TABLET (FP) PO SCH (10:12)
[2021-11-17] MEDS: NICOTINE 10 MG CARTRIDGE (INHALER) IH SCH (10:13)
[2021-11-17] MEDS: RIVAROXABAN 20 MG TABLET PO SCH (17:38)
[2021-11-17] MEDS: THIAMINE HCL 100 MG TABLET (FP) PO SCH (21:13)
[2021-11-17] MEDS: MELATONIN 5 MG TABLETS PO PRN (21:13)
[2021-11-17] MEDS: ROSUVASTATIN CA 10 MG TABLET PO SCH (21:14)
[2021-11-17] MEDS: LIDOCAINE PATCH REMOVAL MC SCH (21:15)
[2021-11-18] MEDS: GABAPENTIN 400 MG CAPSULE PO SCH ×3 (06:30→21:22)
[2021-11-18] MEDS: DULoxetine HCL 30 MG CAPSULE.DR PO SCH (09:55)
[2021-11-18] MEDS: CLOPIDOGREL BISULFATE 75 MG TABLET (FP) PO SCH (09:56)
[2021-11-18] MEDS: FAMOTIDINE 20 MG TABLET PO SCH (09:56)
[2021-11-18] MEDS: NIFEdipine E.R 60 MG TABLET PO SCH ×2 (09:56→21:23)
[2021-11-18] MEDS: METOPROLOL TARTRATE 25 MG TABLET (FP) PO SCH ×2 (09:56→21:23)
[2021-11-18] MEDS: NICOTINE 10 MG CARTRIDGE (INHALER) IH SCH (09:56)
[2021-11-18] MEDS: hydrOXYzine PAMOATE 25 MG CAPSULE (FP) PO PRN ×2 (09:57→21:23)
[2021-11-18] MEDS: PRENATAL VITAMINS W/ FOLIC ACID TABLET (FP) PO SCH (09:57)
[2021-11-18] MEDS: RIVAROXABAN 20 MG TABLET PO SCH (18:02)
[2021-11-18] MEDS: ROSUVASTATIN CA 10 MG TABLET PO SCH (21:23)
[2021-11-18] MEDS: MELATONIN 5 MG TABLETS PO PRN (21:23)
[2021-11-18] MEDS: THIAMINE HCL 100 MG TABLET (FP) PO SCH (21:23)
[2021-11-18] MEDS: LIDOCAINE PATCH REMOVAL MC SCH (21:25)
[2021-11-19] MEDS: GABAPENTIN 400 MG CAPSULE PO SCH ×3 (06:24→21:28)
[2021-11-19] MEDS: DULoxetine HCL 30 MG CAPSULE.DR PO SCH (10:22)
[2021-11-19] MEDS: FAMOTIDINE 20 MG TABLET PO SCH (10:23)
[2021-11-19] MEDS: PRENATAL VITAMINS W/ FOLIC ACID TABLET (FP) PO SCH (10:23)
[2021-11-19] MEDS: METOPROLOL TARTRATE 25 MG TABLET (FP) PO SCH ×2 (10:23→21:28)
[2021-11-19] MEDS: CLOPIDOGREL BISULFATE 75 MG TABLET (FP) PO SCH (10:23)
[2021-11-19] MEDS: NIFEdipine E.R 60 MG TABLET PO SCH ×2 (10:23→21:28)
[2021-11-19] MEDS: NICOTINE 10 MG CARTRIDGE (INHALER) IH SCH (10:24)
[2021-11-19] MEDS: hydrOXYzine PAMOATE 25 MG CAPSULE (FP) PO PRN ×2 (10:25→21:28)
[2021-11-19] MEDS: RIVAROXABAN 20 MG TABLET PO SCH (17:58)
[2021-11-19] MEDS: THIAMINE HCL 100 MG TABLET (FP) PO SCH (21:29)
[2021-11-19] MEDS: MELATONIN 5 MG TABLETS PO PRN ×2 (21:29→21:32)
[2021-11-19] MEDS: ROSUVASTATIN CA 10 MG TABLET PO SCH (21:29)
[2021-11-19] MEDS: LIDOCAINE PATCH REMOVAL MC SCH (21:59)
[2021-11-20] MEDS: GABAPENTIN 400 MG CAPSULE PO SCH ×3 (06:35→21:35)
[2021-11-20] MEDS: DULoxetine HCL 30 MG CAPSULE.DR PO SCH (09:49)
[2021-11-20] MEDS: METOPROLOL TARTRATE 25 MG TABLET (FP) PO SCH ×2 (09:50→21:36)
[2021-11-20] MEDS: NICOTINE 10 MG CARTRIDGE (INHALER) IH SCH (09:51)
[2021-11-20] MEDS: FAMOTIDINE 20 MG TABLET PO SCH (09:51)
[2021-11-20] MEDS: NIFEdipine E.R 60 MG TABLET PO SCH ×2 (09:52→21:35)
[2021-11-20] MEDS: PRENATAL VITAMINS W/ FOLIC ACID TABLET (FP) PO SCH (09:52)
[2021-11-20] MEDS: CLOPIDOGREL BISULFATE 75 MG TABLET (FP) PO SCH (09:52)
[2021-11-20] MEDS: hydrOXYzine PAMOATE 25 MG CAPSULE (FP) PO PRN ×2 (09:53→21:36)
[2021-11-20] MEDS: RIVAROXABAN 20 MG TABLET PO SCH (17:21)
[2021-11-20 21:23] VITALS: RESP 18; TEMP 97.5
[2021-11-20] MEDS: MELATONIN 5 MG TABLETS PO PRN (21:34)
[2021-11-20] MEDS: THIAMINE HCL 100 MG TABLET (FP) PO SCH (21:34)
[2021-11-20] MEDS: ROSUVASTATIN CA 10 MG TABLET PO SCH (21:35)
[2021-11-20] MEDS: LIDOCAINE PATCH REMOVAL MC SCH (21:36)
[2021-11-21] MEDS: GABAPENTIN 400 MG CAPSULE PO SCH (06:43)
[2021-11-21 09:25] VITALS: BP 171/83; PULSE 59
[2021-11-21] MEDS: DULoxetine HCL 30 MG CAPSULE.DR PO SCH (09:34)
[2021-11-21] MEDS: PRENATAL VITAMINS W/ FOLIC ACID TABLET (FP) PO SCH (09:34)
[2021-11-21] MEDS: CLOPIDOGREL BISULFATE 75 MG TABLET (FP) PO SCH (09:34)
[2021-11-21] MEDS: FAMOTIDINE 20 MG TABLET PO SCH (09:34)
[2021-11-21] MEDS: NIFEdipine E.R 60 MG TABLET PO SCH (09:34)
[2021-11-21] MEDS: METOPROLOL TARTRATE 25 MG TABLET (FP) PO SCH (09:34)
== END 2021-11-21 09:40 | disposition home or self-care (01) | DRG 772 ==
LOC: YASAS 16:42 → Y3E 17:22
PROVIDERS: ADMIT Allergy & Immunology; ATTEND Psychiatry & Neurology Pain Medicine
PROC: HZ42ZZZ Group Counseling for Substance Abuse Treatment, Cognitive-Behavioral (ICD-10-PCS; principal; 2021-11-06)
DX: F10.20 Alcohol dependence, uncomplicated (principal); F12.20 Cannabis dependence, uncomplicated; F17.210 Nicotine dependence, cigarettes, uncomplicated; F10.280 Alcohol dependence with alcohol-induced anxiety disorder; F10.282 Alcohol dependence with alcohol-induced sleep disorder; E78.5 Hyperlipidemia, unspecified; I10 Essential (primary) hypertension; J44.9 Chronic obstructive pulmonary disease, unspecified; E66.9 Obesity, unspecified; Z68.33 Body mass index [BMI] 33.0-33.9, adult; Z28.310 Unvaccinated for COVID-19; Z86.73 Personal history of transient ischemic attack (TIA), and cerebral infarction without residual deficits; Z86.711 Personal history of pulmonary embolism; Z79.01 Long term (current) use of anticoagulants; Z89.611 Acquired absence of right leg above knee; Z89.512 Acquired absence of left leg below knee
CPT/HCPCS: 36415; 70450-TC; 70551-TC; 72125-TC; 72131-TC; 72192-TC; 73030-TC-LT-FY; 73060-TC-LT-FY; 80048; 80053; 83735; 84100; 84484; 85025; 85027; 93005; 93010; 93306-TC; 99283-25; C9803-CS; G0378; U0003; U0005